=== PATIENT | male | born 2000 | race African-American/Black ===

== ENCOUNTER 2022-05-05 06:51 | Outpatient (CLI) | payer OTHER, SELFPAY ==
--- NOTE | 2022-05-05 07:22 | MR_ITS ---
WS: [id number] MRI RIGHT KNEE HISTORY: R KNEE INJURY COMPARISON: None available. Anterior cruciate ligament: Intact. Posterior cruciate ligament: Intact. Medial collateral ligament: Small amount of fluid adjacent to the MCL but no tear. Posterior lateral corner structures: Intact. Medial menisci: Intact. Normal signal, size and shape. Lateral meniscus: Partially extruded posterior horn. There is increased signal in the posterior horn in the partially extruded meniscus. Suspicious for tear within the periphery of this extruded meniscu s. Seen only on the sagittal images is a focal signal abnormality involving the free edge of the post erior horn. Extensor mechanism: Distal quadriceps tendon and patellar tendons are intact. Fluid and soft tissue: Moderate joint effusion. There is fluid extending posterior around the femoral condyles. No Franco's cyst. Osseous and articular structures: Patellofemoral compartment: Normal. Medial compartment: Mild narrowing of the medial compartment. There is mild thinning of the cartilage . Lateral compartment: Mild narrowing of the lateral compartment. 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 MR/MR knee RT wo con* [id number] IMPRESSION: 1. Moderate joint effusion. 2. No marrow edema or fracture. 3. 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 4. Partially extruded posterior horn lateral meniscus. Abnormal signal in the extruded meniscus. Highly suspicious for tear in the periphery of the extruded meniscus. 5. Suspicious for radial tear in the free edge posterior horn lateral meniscus . Seen only on the sagittal image. 6. No ACL tear.
== END 2022-05-05 06:52 | disposition home or self-care (01) ==
PROVIDERS: PCP Family Medicine; Visit Provider Family Medicine
DX: S89.91XA Unspecified injury of right lower leg, initial encounter (principal); M25.461 Effusion, right knee; M94.261 Chondromalacia, right knee; X58.XXXA Exposure to other specified factors, initial encounter
CPT/HCPCS: 73721

== ENCOUNTER 2022-05-27 09:57 | Day surgery (SDC) | payer OTHER, SELFPAY ==
[2022-05-26 12:40] VITALS: BMI 23.3
[2022-05-27] VITALS (12 sets, daily range): BP systolic 102–143; BP diastolic 39–77; PULSE 66–89; RESP 16–20; TEMP 36.3–36.8; O2SAT 99–100
[2022-05-27] MEDS: ketorolac 30 mg/mL INJ IVP (10:53)
[2022-05-27] MEDS: acetaminophen 1,000 MG/100 ML PIGGYBACK 400 MG IV (10:53)
--- NOTE | 2022-05-27 10:53 | P.HPUD_ITS ---
Surgery/Procedure H&P Update DATE OF PROCEDURE: May 27, 2022 DATE H&P PERFORMED: 05/13/22 CHANGES TO PREVIOUS DOCUMENTATION: None. We detailed out his procedure. We talked about the extent of the lateral meniscus tear. This does appear to be large enough where he might warrant an open inside-out repair. We talked about our dissection and our plan will be to dissect out the common peroneal nerve as a wraps around the fibular head in order to have direct visualization during her repair to prevent any injury. He did understand from the stye extraction that this might cause some irritation to the nerve with some decreased sensation or even possible foot drop. Patient and hardware trainer are in agreements and agree to proceed with current plan. We also reviewed he has a small cartilage defect chondromalacia roughly 7 mm in size on the lateral femoral condyle. This is the weightbearing surface and depending on her evaluation there is potential we might need to microfracture the lateral femoral condyle. We detailed out all the risk benefits complications to this procedure he understands and agrees to proceed with surgery. All questions answered. PREOP DIAGNOSIS: Right knee lateral meniscus tear, right knee lateral femoral condyle chondr PRIMARY INDICATION FOR PROCEDURE: right knee lateral meniscus tear, right knee lateral femoral condyle focal chondromalacia PLANNED PROCEDURE: Operation Date: 05/27/22 11:00 Proposed Procedures p RIGHT KNEE DIAGNOSTIC AND SURGICAL ARTHROSCOPY LATERAL MENISCAL REPAIR VERSUS PARTIAL LATERAL MENISCECTOMY AND POSSIBLE MICROFRACTURE LATERAL FEMORAL CONDYLE 82505, 88735, 63280, 30036,S89.90XA(Right) - Curtis Gomez DO
[2022-05-27] MEDS: ceFAZolin 2,000 MG in sodium chloride 0.9% (plus) 50 ML 100 MG IV (10:54)
--- NOTE | 2022-05-27 13:17 | ANES.PREANE2 ---
Pre-Anesthetic Assessment Height/Weight: Height 1.91 m Weight 84.822 kg O2 Del Method 05/27/22 10:46 Preop Diagnosis: Right knee lateral meniscus tear, right knee lateral femoral condyle chondr Operation Date: 05/27/22 11:00 Proposed Procedures p RIGHT KNEE DIAGNOSTIC AND SURGICAL ARTHROSCOPY LATERAL MENISCAL REPAIR VERSUS PARTIAL LATERAL MENISCECTOMY AND POSSIBLE MICROFRACTURE LATERAL FEMORAL CONDYLE 93983, 92210, 48331, 26383,S89.90XA(Right) - Curtis Gomez DO Familial anesthetic complications: none Was Beta Darlin taken within 24 hours: N/A Was Clonidine taken within 24 hours: N/A Last intake: Intake Last Liquid Date 05/26/22 Last Liquid Time 21:00 Last Solid Date 05/26/22 Last Solid Time 21:00 Social No alcohol and No tobacco Exam alert, oriented x 3, clear to auscultation bilaterally and regular rate & rhythm Airway Submandibular: within normal limits Cervical ROM: within normal limits Mallampati: Class I Dentition: full History/ROS No significant history except as noted Anesthetic Plan ASA status: 1 Anesthesia: General Medications/Allergies Home Medications Medication Instructions Recorded Confirmed Last Taken Type No Known Home Medications 05/13/22 05/13/22 Unknown History hydrocodone 5 mg-acetaminophen 325 1 tab PO Q6H PRN pain 7 days #28 05/27/22 Unknown Rx mg tablet tabs Allergies Allergy/AdvReac Type Severity Reaction Status Date / Time No Known Allergies Allergy Verified 05/13/22 08:11 [facility] Anesthesia Medical History (Updated 05/17/22 @ 22:22 by Curtis Gomez DO) Acute lateral meniscus tear of right knee Defect of articular cartilage Social History (Updated 05/13/22 @ 08:15 by Nikita Laura LPN) Smoking and tobacco status: never smoked Alcohol intake: never Data Anesthesia Cardiac Studies: No Data to Display
--- NOTE | 2022-05-27 14:21 | P.OP_ITS ---
Brief Operative Note Date of procedure: 05/27/22 Pre-op diagnosis: Right knee lateral meniscus tear, lateral femoral condyle ch ondromalacia Post-op diagnosis: same (and loose body) Procedure Done: diagnostic and surgical arthroscopy right knee, lateral meniscus repair inside- out technique, removal loose body, chondroplasty lateral femoral condyle, bone marrow stimulation of intercondylar notch Surgeon: Curtis Gomez Estimated blood loss (mL): 20 Complications: None Post-op Plan: Patient recovering well in PACU. Will be given appropriate discharge instructions as well as DVT prophylaxis pain medication and antinausea medication. Patient to be in hinged knee brace may range of motion 0 to 90 degrees no range of motion past 90 degrees. Have patient toe-touch weightbearing utilizing crutches with knee brace on and in place locked in full extension. Patient to follow-up with me in office in 2 weeks. Condition: stable Disposition: same day Coding Level of Care Code Acute Hall Manager for Mayi Loco
--- NOTE | 2022-05-27 16:25 | ANE.PACU2 ---
Inpatient post-anesthesia follow up: Airway intact: Yes Vital signs: Temperature 98.2 F Pulse Rate 89 Respiratory Rate 18 Blood Pressure 140/77 Pulse Oximetry 100 Oxygen Delivery Me thod Room Air Oxygen Flow Rate 6 Fraction of Inspir ed Oxygen Hydration adequate: Yes Nausea and vomiting: No Pain level: 1 Mental status: Baseline
--- NOTE | 2022-05-27 17:23 | PM.PACU ---
PACU note Narrative: Patient was seen evaluate in PACU. Dressing clean dry and intact. Hinged brace on and in place locked in full extension. Distal pulses palpable. Toes warm well perfused. Brisk capillary refill less than 2 seconds. Patient is able to wiggle toes as well as plantarflex and dorsiflex ankle. Sensation intact to light touch at SPN/DPN nerve distribution. Exam: awake (see narrative for detailed examination) Disposition: discharged
--- NOTE | 2022-05-27 17:25 | P.OP_ITS ---
Operative Report Date of procedure: May 27, 2022 Pre-op diagnosis: Preop Diagnosis Right knee lateral meniscus tear, right knee lateral femoral condyle chondr Post-op diagnosis: Right knee lateral meniscus tear, lateral femoral condyle chondromalacia, loose body Procedure done: Right knee diagnostic and surgical arthroscopy, lateral meniscus repair inside- out technique, removal loose body, chondroplasty lateral femoral condyle, bone marrow stimulation of intercondylar notch Implants: Arthrex inside-out suture needles= suture tape meniscus repair needles with 0.9 mm suture tape 8 used, one was wasted Surgeon: Curtis Gomez DO Estimated blood loss: 20 cc 105 IV fluids: See anesthesia record Complications: None Findings: See operative report narrative Condition: stable Disposition: same day Brief History: Sarah is a 21-year-old male who sustained an injury to his right knee. 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 He was seen evaluated by his sports physician and an MRI was ordered. MRI findings consistent with a lateral meniscus tear. As result patient was referred to my office for evaluation and treatment recommendations. Given his young age and symptomatic nature of his tear this does appear to be more at the periphery I feel this would be a repairable tear. We talked about his treatment options as far as nonoperative and operative intervention. He understands the risk benefits complication alternatives of surgical nonsurgical treatment options as well. At this point time through shared decision making he would like to proceed with surgical intervention. Of note his MRI did show some chondromalacia of the lateral femoral condyle. At this point time we discussed in office and plan for kassi gical intervention will be a right knee diagnostic and surgical arthroscopy lateral meniscus repair versus partial lateral meniscectomy and possible microfracturing of the lateral femoral condyle. Patient understands and agrees with current plan. All questions answered. Procedure: Patient was seen and evaluated in the preoperative holding area. The consent was reviewed with patient. Correct extremity was then marked. Patient was then seen evaluated by the anesthesia and preoperative tube. Once cleared for surgery he was taken back to the operative suite. He then was placed onto the OR table in supine position. He underwent anesthesia per the anesthesia department. Once appropriately anesthetized patient was appropriately positioned all bony prominences well-padded patient was appropriately secured to the bed. A nonsterile tourniquet was applied to the operative extremities thigh. Once in correct position the right lower extremity was then prepped and draped in standard orthopedic fashion. Final timeout performed. Patient received appropriate preoperative antibiotics. Esmarch tourniquet was used exsanguinate the right lower extremity. Tourniquet was insufflated 250 mmHg. Started my procedure with a diagnostic and surgical arthroscopy standard 2 portal vertical portal incisions starting with my inferior lateral portal. This was then made and I introduced the arthroscope in the suprapatellar pouch. Prior to making my medial portal I wanted to evaluate the meniscus tear and have correct portal position. As result the suprapatellar pouch was clear and free of loose bodies mild synovitis noted. I then evaluated the patellofemoral joint which was pristine with no evidence of chondromalacia. The medial gutter was free of loose bodies the medial compartment showed a pristine articular cartilage and no evidence of meniscal tear. At this point time I moved my camera into the intercondylar notch which showed an intact ACL and PCL and then I evaluated the lateral compartment. Immediately on entering the lateral compartment there was grade 2?3 changes on the femoral condyle. This point time I was able to evaluate the lateral meniscus. The lateral meniscus tear was at the mid body extending into the posterior horn of the lateral meniscus. Establish my medial portal utilizing an outside in technique utilizing a spinal needle to have correct trajectory and ability to go over the tibial eminences. This portal was established and a probe was then introduced. On my evaluation this was a rather complex tear. This tear had a small radial component of the posterior horn this was only extending into the white white zone. Probing of the posterior horn this had significant extrusion as well as the body. This was able to be completely subluxed all the way into the lateral compartment underneath the condyle. This was consistent with MRI findings of peripheral tear. Of note at the popliteal hiatus there did appear to be a horizontal component. This appeared to be rounded sclerotic and near old. This is well was hypermobile. At this point time given the extent and the hypermobility and need for multiple sutures my decision was made to perform an inside-out meniscal repair. I did go into the retrocruciate space and identified a large loose body laterally. This was within the popliteal hiatus. I then delivered this into the lateral compartment with pressure on the back of the knee. I then utilizing a grasper to retrieve this loose body and this was measured to being roughly 1.2cm in length. At this point time water was turned off fluid was suctioned from the knee joint and I began my dissection. The knee was then placed in a slight valgus position in a flexed position to help relax the neurovascular structures. I then performed a standard lateral dissection for an inside-out meniscal repair starting over the lateral epicondyle of the femur aiming towards the anterior border of the fibular head. This was in line with the interval between IT band and biceps femoris. Sharp scalpel excision was then made through skin and subcutaneous tissue I did develop full-thickness skin flaps. I did identify the biceps femoris and IT band. Given my inside-out technique and shuttling a suture in close proximity to the common peroneal nerve I then dissected out the common peroneal nerve and decompress this as this wraps around the fibular head. Nerve was noted to being scarred likely due to trauma. Nerve is appropriately decompressed and protected throughout the rest of the case during my meniscus repair. I then went into my interval of the posterior border of the IT band and between biceps femoris. I then dissected this plane out and then identify the lateral head of the gastrocnemius. Once this was identified I then spread bluntly between the lateral head of the gastroc and joint capsule with care not to violate the joint capsule. Once this was done I then inserted my Arthrex spoon neurovascular protector retractor. At this point time I sequentially shuttled my vertical mattress sutures starting superiorly of the meniscus. These were then placed initially in the meniscus the meniscus was then reduced and shuttled through and retrieved by my assistant clinical nurse manager. I placed an total 7 sutures appropriately spaced around the popliteus with care not to suture into the popliteus. These were combination of superior and inferior vertical mattress sutures to allow appropriate contour of the meniscus. Once this was then performed. There was a space where the inferior leaflet of what appeared to be an old meniscus tear right at the hiatus compared to the posterior horn and body separation. In order to add some stability I then performed a horizontal mattress stitch trying to suture the side to side I did these on the opposite ends of my 2 superior sutures in order to create a ripstop and reapproximate these as best as possible. Once I was satisfied with my suture placement arthroscope was then taken out the knee was placed in slight valgus and in flexion and then I subsequently tied all of my meniscal suture tapes on the backside of the capsule. This had excellent fixation. I then reintroduced my arthroscope and evaluated the pair and probed the repair thoroughly which was stable on the periphery. This point I satisfied with my meniscal repair. I then evaluated the lateral femoral condyle. This was no actual focal defect as result I performed a simple chondroplasty lateral femoral condyle. In order to help with meniscal repair as well as patient's chondromalacia I then introduced a [place] pick into the intercondylar notch and subsequently performed multiple bone marrow stimulation sites with excellent bone marrow fat cells extruding. This completed the surgery. All fluid was suctioned free of the knee joint. All instruments were then withdrawn. I then closed my lateral incision in layered fashion of 0 Vicryl 2-0 Vicryl and Monocryl suture and Steri-Strips for skin. Interrupted Monocryl for the portals with Steri-Strips as well. Knee was then dressed with 4 x 4's ABD Curlex soft roll and an Kyler wrap. Before patient woke up he was placed in a Mentcle ACL hinged brace and locked in full extension. Patient was then awakened from anesthesia and taken to PACU in stable condition. Disposition: Patient recovering well in PACU. Patient examined postoperatively and patient was wiggling toes plantarflex and dorsiflex and ankle knotted sensation tact light touch the SPN and DPN nerve distribution. Brace is on in place dressing clean dry and intact. Will be given appropriate discharge instructions as well as DVT prophylaxis and pain medication. This brace will be locked in full extension while he is up ambulating. This point time would recommend he be toe- touch weightbearing where he can just utilize toe touching for balance with ambulating. Otherwise should be utilizing crutches. We did talk about be ginning range of motion working towards 0 to 90 degrees and that will be his limitation for the next 6 weeks to protect the meniscal repair. Coordinated with his link trainer. We will see him back in the office in 2 weeks for incision check. All questions answered at this time.
== END 2022-05-27 17:04 | disposition home or self-care (01) ==
PROVIDERS: PCP Family Medicine; Visit Provider Student in an Organized Health Care Education/Training Program
PROC: (CPT 29870; principal; 2022-05-27 11:00)
PROC: (CPT 29881; 2022-05-27 11:00)
DX: S83.281A Other tear of lateral meniscus, current injury, right knee, initial encounter (principal); X58.XXXA Exposure to other specified factors, initial encounter; Y93.67 Activity, basketball; M94.20 Chondromalacia, unspecified site; M23.41 Loose body in knee, right knee
CPT/HCPCS: 29881; J0131; J0690; J1100; J1170; J1885; J2250; J2405; J2704; J3010; L1812